=== PATIENT | male | born 2000 | race Caucasian/White ===

== ENCOUNTER → 2025-02-21 | Outpatient (CLI) | payer BC, SELFPAY ==
[2025-02-21 16:28] LABS: Basophils # (Auto) 0.1 Thou/mm3 (0.0-0.2); Basophils % (Auto) 1 % (0-2.5); Eosinophils # (Auto) 0.2 Thou/mm3 (0.0-0.5); Eosinophils % (Auto) 2 % (0-10); Hematocrit 40.4 % (41.0-53.0); Hemoglobin 14.2 g/dL (13.5-16.0); Immature Granulocytes % (Auto) 1 % (0-0); Immature Granulocytes Auto 0.05 Thou/mm3 (0.00-0.00); Lymphocytes % (Auto) 27 % (10-50); Mean Corpuscular HGB Conc 35.1 g/dl (31.0-37.0); Mean Corpuscular Hemoglobin 29.5 pg (25.0-35.0); Mean Corpuscular Volume 84 fL (80-100); Monocytes # (Auto) 0.6 Thou/mm3 (0.0-0.8); Monocytes % (Auto) 6 % (0-12); Neutrophils # (Auto) 7.2 Thou/mm3 (1.8-7.7); Neutrophils % (Auto) 65 % (37-80); Nucleated Red Blood Cell % 0 /100 WBC (0); Platelet Count 235 Thou/mm3 (140-440); Red Blood Count 4.82 Miln/mm3 (4.50-5.90); White Blood Count 11.1 Thou/mm3 (3.8-10.6)
[2025-02-21 16:57] LABS: Alanine Aminotransferase 21 U/L (10-49); Albumin, Serum 4.7 gm/dL (3.5-5.0); Albumin/Globulin Ratio 2.1 (1.2-2.2); Alkaline Phosphatase 75 U/L (46-116); Anion Gap 11 (7-16); Aspartate Amino Transferase 20 U/L (0-34); BUN/Creatinine Ratio 9 Ratio (12-20); Bilirubin,Total 1.1 mg/dL (0.3-1.2); Blood Urea Nitrogen 9 mg/dL (9-23); Calcium 9.1 mg/dL (8.3-10.6); Calcium (Corrected) 9.1 mg/dL (8.5-10.1); Carbon Dioxide 28.1 mMol/L (20.0-31.0); Chloride 103 mMol/L (98-107); Globulin 2.2 gm/dL (2.3-3.5); Glucose 80 mg/dL (74-106); Osmolality,Calculated 280 (275-295); Potassium 4.1 mMol/L (3.4-5.1); Sodium 142 mMol/L (136-145); Total Protein 6.9 gm/dL (5.7-8.2); eGFR > 60 See Note
[2025-02-26 06:39] LABS: HCG Total,Male (Tumor Marker)* <5 mIU/mL (<5)
== END | disposition home or self-care (01) ==
PROVIDERS: PCP Nurse Practitioner Family; Referring Provider Internal Medicine Hematology & Oncology; Visit Provider Internal Medicine Hematology & Oncology
DX: N50.89 Other specified disorders of the male genital organs (principal)
CPT/HCPCS: 36415; 80053; 82105; 84702; 85025

== ENCOUNTER 2025-03-05 15:00 | Outpatient (RCR) | payer BC, SELFPAY ==
--- NOTE | 2025-03-11 01:05 | CTCFLWUP_ITS ---
Patient: RACHID SHAH : 2000 Page 3 of 5 FOLLOW UP NOTE DATE OF SERVICE: 03/05/2025 NAME: RACHID SHAH ACCOUNT: [id number] : 2000 AGE: 24 INTERVAL HISTORY: Rachid, a male patient with history of pure mature teratoma, presented with concern about a small, knotty subcutaneous lump of unknown duration. The lump was mobile with skin changes noted on examination, possibly originating from a nerve or vessel. Previous CT scan from September 2024 was negative with no lymph node involvement. Management included ordering AFP, Beta-HCG, LDH, CBC, CMP, chest X-ray every 6 months, and a new CT scan to evaluate the nodule, with follow-up in 4 weeks. Physical Examination Skin: Small knotty lesion noted under the skin. Visible skin changes observed in the area. Musculoskeletal: Lesion appears to be coming out of some nerve or vessel. Lesion moves when manipulated. Laboratory, Imaging, and Diagnostic Test Results - CT scan (September 2024): Negative, no lymph nodes - Previous results: - CT scan (last year): No lymph nodes ONCOLOGY HISTORY: DIAGNOSIS: Stage Ia (pT1a, NX, MX) Pure mature teratoma, post pubertal type of the left testes. Radical left orchiectomy (03/24/2022) REASON FOR TODAY?S VISIT: This is office follow-up visit. Mr. Shah is here at [facility]. He is clinically doing very well. Denies any complaints. Denies any cough, chest pain, abdominal pain or leg cramps. Has good appetite and good energy levels. Denies any weight loss. Denies any fevers or night sweats. He had CT scan of the chest abdomen and pelvis done on 07/07/2022 which was essentially negative study as documented below. Mr. Shah did not have any labs drawn for this visit. DATE OF DIAGNOSIS: 03/24/2022 STAGE/TNM: Left testis radical orchiectomy purpura mature teratoma TREATMENT HISTORY: Care?Plan Start?Date Cycle Day Intent HISTORY OF PRESENT ILLNESS: Rachid Shah is a 24-year-old ENG speaking male is referred to oncology clinic for recently diagnosed stage I. Mature teratoma. February 2022: Patient felt a mass in the left testes on self-examination. A scrotal ultrasound confirmed left intratesticular heterogeneous solid mass. 03/11/2022: AFP 7.5 (less than 8.10), beta-hCG less than 3, LDH 157. 03/24/2022: Mr. Shah had a left radical orchiectomy. 04/13/2022: AFP 2.7, beta-hCG less than 3, LDH 195. 07/07/2022: CT scan of the chest abdomen and pelvis with IV contrast? OTHER MEDICAL HISTORY/CONDITIONS: FAMILY HISTORY: SOCIAL HISTORY: MEDICATIONS: 1. No medications reported by patient - Medications Last Reconciled by Audelia Littlejohn MA on 03/05/2025 ALLERGIES: No Known Drug Allergies REVIEW OF SYSTEMS: A complete 14-point review of systems was performed and is negative except as noted in interval history. PHYSICAL EXAMINATION: VITAL SIGNS: Temperature?99, B/P?115/78, Oxygen?Saturation?97% Weight?168?lbs PAIN: 0 - No pain ECOG Performance Status: 0 - Asymptomatic and fully active GENERAL APPEARANCE: Appears well, in no apparent distress, appropriately interactive. HEENT: Normocephalic, no temporal wasting, normal conjunctiva, no scleral icterus, normal hearing, lips without lesions, neck normal range of motion. CARDIOVASCULAR: Not assessed. PULMONARY: Normal respiratory effort, no respiratory distress or use of accessory muscles, speaking in full sentences, no tachypnea. EXTREMITIES: No pedal edema or cyanosis. SKIN: Normal skin appearance. NEUROLOGIC: Alert and oriented x4. PSHYCHIATRIC: Appropriate affect, mood normal, behavior normal, intact thought and speech. LABORATORY DATA: I have personally reviewed and interpreted each of the patient?s relevant lab tests, abnormal findings are below: Date 05/17/23 02/21/25 ??WHITE?BLOOD?COUNT?(Thou/mm3) 8.8 11.1?H ??RED?BLOOD?COUNT?(Miln/mm3) 5.30 4.82 ??HEMOGLOBIN?(gm/dl) 15.4 14.2 ??HEMATOCRIT?(%) 46.7 40.4?L ??PLATELET?COUNT?(Thou/mm3) 179 235 ??NEUTROPHILS?%,?AUTO?(%) 59 65 ??LYMPH?%,?AUTO?(%) 32 27 ??NEUTROPHILS,?AUTO?(Thou/mm3) 5.1 7.2 ??GLUCOSE,RANDOM?(mg/dL) 87 80 ??BLOOD?UREA?NITROGEN?(mg/dL) 7?L 9 ??CREATININE?(mg/dL) 1.00 1.00 ??SODIUM?(mmol/L) 140 142 ??POTASSIUM?(mmol/L) 4.2 4.1 ??CHLORIDE?(mmol/L) 104 103 ??CrCl?(CandG)?(ml/min) 123.89 122.81 ??AST/SGOT?(Unit/L) 13 20 ??ALT/SGPT?(Unit/L) 29 21 ??ALKALINE?PHOSPHATASE?(Unit/L) 80 75 ??BILIRUBIN,?TOTAL?(mg/dL) 1.1 1.1 ??PROTEIN?TOTAL?(gm/dl) 7.7 6.9 ??ALBUMIN,?SERUM?(gm/dl) 5.1?H 4.7 ??GLOBULIN?(gm/dl) 2.6 2.2?L ??ALBUMIN/GLOBULIN?RATIO 2.0 2.1 ??CALCIUM,?SERUM?(mg/dL) 9.7 9.1 ??CALCIUM?SERUM?(CORRECTED)?(mg/dL) 9.7 9.1 ASSESSMENT/PLAN: 1. Mr. Shah is clinically doing well without any complaints. 2. No clinical evidence of recurrence. CT scan of the chest abdomen and pelvis with IV contrast (07/07/2022) is essentially negative study. 3. Stage Ia (pT1a, NX, MX) Pure mature teratoma, post pubertal type of the left testes. 4. Radical left orchiectomy (03/24/2022) 5. AFP beta-hCG as well as LDH are in the normal range on 04/13/2022 6. Prior to surgery on 03/11/2022 AFP, beta-hCG, LDH were in the normal range. Rachid, male patient with history of pure mature teratoma, presenting for follow- up with no specific complaints. History of Pure Mature Teratoma Assessment: Patient has a history of pure mature teratoma, which was previously treated.. A CT scan in September was negative, and there were no lymph node involvement noted last year. Says that he has not completed labs as a he has no lab orders - Order standing labs every 6 months: - Alpha-fetoprotein (AFP) - Beta-HCG - Lactate dehydrogenase (LDH) - Complete blood count (CBC) - Comprehensive metabolic panel (CMP) - Order standing chest X-ray (PA and lateral views) every 6 months - Order CT scan to evaluate newly discovered subcutaneous nodule - Patient to complete ordered blood work within 4 weeks - Follow-up in 4 weeks, with option for phone appointment to discuss results Subcutaneous Nodule Assessment: Patient reports a small, knotty subcutaneous lesion that was newly discovered. On examination, the clinician notes skin changes and describes the lesion as potentially originating from a nerve or vessel. The duration of the lesion's presence is unclear, as the patient is unsure how long it has been there. Plan: - Proceed with CT scan to further evaluate the subcutaneous nodule - Assess CT scan results at follow-up appointment RETURN TO CLINIC: 4 weeks BILLING AND COMPLIANCE: I reviewed external records from providers outside my specialty as summarized above. I spent a total of 50 minutes on this patient?s care on the day of their visit excluding time spent related to any billed procedures. This time includes time spent with the patient as well as time spent documenting in the medical record, reviewing patients records and tests, obtaining history, placing orders, communicating with other healthcare professionals, counseling the patient, family or caregiver, and/or care coordination for the diagnoses above. Electronically Signed by: Tony Wetzel MD T: 1:03 AM CC: PCP: Monica Granados Referring: Monica Granados This document was completed utilizing speech recognition software. Grammatical errors, random word insertions, pronoun errors, and incomplete sentences are an occasional consequence of this system due to software limitations, ambient noise, and hardware issues. Any formal questions or concerns about the content, text or information contained within the body of this dictation should be directly addressed to the provider for clarification.
== END 2025-03-18 23:59 | disposition home or self-care (01) ==
LOC: SCTC 15:00
PROVIDERS: PCP Nurse Practitioner Family; Referring Provider Nurse Practitioner Family; Visit Provider Internal Medicine Hematology & Oncology
DX: L98.9 Disorder of the skin and subcutaneous tissue, unspecified (principal); Z86.018 Personal history of other benign neoplasm; Z90.79 Acquired absence of other genital organ(s)
CPT/HCPCS: 99212; G0463

== ENCOUNTER → 2025-04-08 | Outpatient (CLI) | payer BC, SELFPAY ==
--- NOTE | 2025-04-08 11:30 | XR_ITS ---
Examination: CT chest with intravenous contrast CT abdomen with intravenous contrast CT pelvis with intravenous contrast CT chest without intravenous contrast. CT abdomen without intravenous contrast. CT pelvis without intravenous contrast. 2-D coronal and sagittal reconstructions Time of exam: April 08, [address] abdomen pelvis September 27, 2023, CT abdomen pelvis December 08, 2022, CT chest July 07, 2022 INDICATIONS: Status post left radical orchiectomy 3 years ago, restaging CTDI: vol (mGy) : 12.9 DLP: (mGycm): 1008 Technique: Multiple axial images of the chest, abdomen and pelvis with intravenous contrast, 3.0 mm slice thickness. Images obtained post intravenous injection Isovue 370 60 cc. 2-D sagittal and coronal reconstructions. Low dose protocols were performed. One or more of the following dose reduction techniques were used; automated exposure control, adjustment of the mA and/or KV according to patient size, use of iterative reconstruction technique. Findings: No thoracic aortic aneurysm dilatation No pulmonary artery emboli No paratracheal tracheobronchial or bronchopulmonary adenopathy No pneumonia, pulmonary edema, pleural disease or pulmonary nodules No liver splenic pancreatic or adrenal mass lesion Contracted gallbladder No hydronephrosis No abdominal or pelvic lymphadenopathy Aorta normal size No pericecal inflammatory change,. No bladder mass or bladder calculi Negative for prostatomegaly The osseous structures are intact IMPRESSION: No interval metastatic disease
== END | disposition home or self-care (01) ==
PROVIDERS: PCP Nurse Practitioner Family; Referring Provider Internal Medicine Hematology & Oncology; Visit Provider Internal Medicine Hematology & Oncology
DX: N50.89 Other specified disorders of the male genital organs (principal)
CPT/HCPCS: 71270; 74178; A4649; Q9967

== ENCOUNTER → 2025-04-12 | Outpatient (CLI) | payer BC, SELFPAY ==
[2025-04-12 11:44] LABS: AFP Non-Pregnant 2.40 ng/mL (<8.10)
[2025-04-12 11:45] LABS: Alanine Aminotransferase 24 U/L (10-49); Albumin, Serum 4.6 gm/dL (3.5-5.0); Albumin/Globulin Ratio 1.8 (1.2-2.2); Alkaline Phosphatase 94 U/L (46-116); Anion Gap 8 (7-16); Aspartate Amino Transferase 26 U/L (0-34); BUN/Creatinine Ratio 10 Ratio (12-20); Bilirubin,Total 0.4 mg/dL (0.3-1.2); Blood Urea Nitrogen 9 mg/dL (9-23); Calcium 9.5 mg/dL (8.3-10.6); Calcium (Corrected) 9.5 mg/dL (8.5-10.1); Carbon Dioxide 28.0 mMol/L (20.0-31.0); Chloride 105 mMol/L (98-107); Creatinine (Component) 0.9 mg/dL (0.6-1.3); Globulin 2.5 gm/dL (2.3-3.5); Glucose 91 mg/dL (74-106); LDH (Lactate Dehydrogenase) 195 U/L (120-246); Osmolality,Calculated 279 (275-295); Potassium 4.6 mMol/L (3.4-5.1); Sodium 141 mMol/L (136-145); Total Protein 7.1 gm/dL (5.7-8.2); eGFR > 60 See Note
[2025-04-16 06:48] LABS: HCG Total,Male (Tumor Marker)* <5 mIU/mL (<5)
== END | disposition home or self-care (01) ==
LOC: SCTO 09:59
PROVIDERS: PCP Nurse Practitioner Family; Referring Provider Internal Medicine Hematology & Oncology; Visit Provider Internal Medicine Hematology & Oncology
DX: N50.89 Other specified disorders of the male genital organs (principal)
CPT/HCPCS: 36415; 80053; 82105; 83615; 84702

== ENCOUNTER 2025-04-18 16:01 | Outpatient (RCR) | payer BC, SELFPAY ==
--- NOTE | 2025-04-22 07:12 | CTCFLWUP_ITS ---
Patient: CINTHYA SHAH : 2000 MR#: [id number] Page 2 of 2 TELEHEALTH AUDIO FOLLOW UP NOTE DATE OF CONSULTATION: 04/18/2025 NAME: CINTHYA SHAH ACCOUNT: [id number] : 2000 AGE: 25 REFERRING PHYSICIAN: Monica Granados MD PRIMARY PHYSICIAN: Monica Granados MD INTERVAL HISTORY: No new complaint here to follow-up on CT scan results. Telephone appointment continued after confirming with Mr. Shah his date of and name and consent for telephone appointment. DIAGNOSIS: ONCOLOGY HISTORY: DIAGNOSIS: Stage Ia (pT1a, NX, MX) Pure mature teratoma, post pubertal type of the left testes. Radical left orchiectomy (03/24/2022) REASON FOR TODAY?S VISIT: This is office follow-up visit. Mr. Shah is here at [facility]. He is clinically doing very well. Denies any complaints. Denies any cough, chest pain, abdominal pain or leg cramps. Has good appetite and good energy levels. Denies any weight loss. Denies any fevers or night sweats. He had CT scan of the chest abdomen and pelvis done on 07/07/2022 which was essentially negative study as documented below. Mr. Shah did not have any labs drawn for this visit. DATE OF DIAGNOSIS: 03/24/2022 STAGE/TNM: Left testis radical orchiectomy purpura mature teratoma HISTORY OF PRESENT ILLNESS: 25-year-old male stage I. Mature teratoma. February 2022: Patient felt a mass in the left testes on self-examination. A scrotal ultrasound confirmed left intratesticular heterogeneous solid mass. 03/11/2022: AFP 7.5 (less than 8.10), beta-hCG less than 3, LDH 157. 03/24/2022: Mr. Shah had a left radical orchiectomy OTHER MEDICAL HISTORY/CONDITIONS: FAMILY HISTORY: SOCIAL HISTORY: MEDICATIONS: 1. No medications reported by patient - Medications Last Reconciled by Marietta Nath MD on 04/18/2025 ALLERGIES: No Known Drug Allergies REVIEW OF SYSTEMS: A complete 14-point review of systems was performed and is negative except as noted in interval history. PHYSICAL EXAMINATION: The patient appeared well-nourished, alert, and in no apparent distress via video conferencing. LABORATORY DATA: I have personally reviewed and interpreted each of Mr. Pennys relevant lab tests, abnormal findings are below: ASSESSMENT/PLAN: Mature teratoma Status post orchidectomy Discussed CT scan finding with patient which shows no metastatic disease Follow-up in 6 months with hormones ORDERS: Order # Description [id number] MD Follow Up 6 Month + AFP + bHCG - Quant (TM) [id number] Lactate Dehydrogenase (LDH) RETURN TO CLINIC: I reviewed the diagnosis, prognosis, and recommended treatment/procedure options with the patient (and/or their legal eligibility services representative), including the potential benefits, risks, side effects and alternative therapies. We also discussed the option of no treatment and the possibility of clinical trial participation, if applicable. All questions were addressed, and they demonstrated understanding. They provided informed consent to proceed with the proposed plan of care. BILLING AND COMPLIANCE: I reviewed external records from providers outside my specialty as summarized above. I spent a total of 50 minutes on this patient?s care on the day of their visit excluding time spent related to any billed procedures. This time includes time spent with the patient as well as time spent documenting in the medical record, reviewing patients records and tests, obtaining history, placing orders, communicating with other healthcare professionals, counseling the patient, family or caregiver, and/or care coordination for the diagnoses above. I performed this evaluation using real-time Telehealth tools. Prior to initiating, the patient consented to perform this evaluation using Telehealth tools. Electronically Signed by: Tony Wetzel MD T: 7:10 AM CC: PCP: Monica Granados Referring: Monica Granados This document was completed utilizing speech recognition software. Grammatical errors, random word insertions, pronoun errors, and incomplete sentences are an occasional consequence of this system due to software limitations, ambient noise, and hardware issues. Any formal questions or concerns about the content, text or information contained within the body of this dictation should be directly addressed to the provider for clarification.
== END 2025-04-18 23:59 | disposition home or self-care (01) ==
LOC: SCTC 16:01
PROVIDERS: PCP Nurse Practitioner Family; Referring Provider Nurse Practitioner Family; Visit Provider Internal Medicine Hematology & Oncology
DX: D40.12 Neoplasm of uncertain behavior of left testis (principal); Z90.79 Acquired absence of other genital organ(s)
CPT/HCPCS: 99212; G0463